=== PATIENT | female | born 1965 | race Caucasian/White ===

== ENCOUNTER 2017-06-24 12:45 | Emergency (ER) | payer BC ==
[~2017-06-24] VITALS: Ht 162.6 cm; Wt 113.6 kg
[~2017-06-24 12:45] MED LIST: CETIRIZINE; LEXAPRO; LOPRESSOR 225 MG/TAB PO; NORCO 325 MG-51 TAB PO; RANEXA1000 MG PO; WELLBUTRIN 100100 MG PO
[2017-06-24 12:48] VITALS: BP 136/63; TEMP 98.3
[2017-06-24] MEDS ORDERED: ISORDIL TITRADO30 MG PO (12:52)
[2017-06-24] MEDS ORDERED: ASPIRIN E.C. 8181 MG PO (12:53)
[2017-06-24] MEDS ORDERED: NORCO 325 MG-51 TAB PO (13:57)
[2017-06-24 14:17] VITALS: PULSE 75
== END 2017-06-24 14:23 | disposition home or self-care (01) ==
LOC: COL.ER 12:45
DX: S22.069A Unspecified fracture of T7-T8 vertebra, initial encounter for closed fracture (principal); F32.9 Major depressive disorder, single episode, unspecified; Z90.89 Acquired absence of other organs; W18.2XXA Fall in (into) shower or empty bathtub, initial encounter

== ENCOUNTER 2023-10-06 08:09 | Observation (INO) | payer BC ==
[2023-10-06] VITALS (7 sets, daily range): BP systolic 123–146; BP diastolic 45–78; PULSE 70–79; TEMP 98.7–99.4
[~2023-10-06] VITALS: Ht 162.6 cm; Wt 113.5 kg
[~2023-10-06 08:09] MED LIST changes: +ASPIRIN E.C. 8181 MG PO; +ISORDIL TITRADO30 MG PO
[2023-10-06] MEDS ORDERED: NS 1,000 ML IV SCH ×2 (08:30→12:45)
[2023-10-06 08:59] LABS: COLLECTION METHOD CLEAN CATCH
[2023-10-06 09:08] LABS: BASO % 0.4 % (0.0-2.0); EOS # 0.2 K/mm3 (0.0-0.7); EOS % 3.5 % (0.0-4.0); GRAN # 3.2 K/mm3 (1.4-6.5); GRAN % 62.1 % (42.2-75.2); HEMATOCRIT 41.3 % (37.0-47.0); HEMOGLOBIN 13.8 g/dl (12.5-16.0); LYMPH # 1.2 K/mm3 (1.2-3.4); MEAN CELL VOLUME 90 fl (80.0-100.0); MEAN CORPUSCULAR HEMOGLOBIN 30 pg (27-31); MEAN CORPUSCULAR HGB CONC 33 g/dl (33.0-37.0); MEAN PLATELET VOLUME 9.4 fl (7.4-10.4); MONO # 0.5 K/mm3 (0.1-0.6); MONO % 10.2 % (1.7-9.3); PLATELET COUNT 154 K/mm3 (130-400); RED BLOOD COUNT 4.57 M/mm3 (4.10-5.30); REDCELL DISTRIBUTION WIDTH-CV 13.5 % (11.5-14.5)
[2023-10-06 09:15] LABS: URINE APPEARANCE CLOUDY (CLEAR/HAZY); URINE BLOOD 3+ (NEGATIVE); URINE COLOR YELLOW (YELLOW); URINE GLUCOSE NEGATIVE (NEGATIVE); URINE KETONE NEGATIVE (NEGATIVE); URINE NITRATE NEGATIVE (NEGATIVE); URINE PROTEIN(semi-quant) 3+ (NEGATIVE); URINE UROBILINOGEN 0.2 E.U/dL (0.2-1.0)
[2023-10-06 09:21] LABS: ALBUMIN 3.7 g/dL (3.5-5.0); BILIRUBIN,TOTAL 0.6 mg/dL (0.2-1.2); CALCIUM 9.3 mg/dL (8.4-10.2); CREATININE, serum 1.08 mg/dL (0.57-1.11); POTASSIUM 3.6 mEq/L (3.5-4.5); TOTAL PROTEIN 6.5 g/dl (6.2-8.1)
[2023-10-06] MEDS ORDERED: Iohexol 300 - 100 ML VIAL IV ONE (10:45)
[2023-10-06] MEDS ORDERED: NS 100 ML IV SCH (10:45)
[2023-10-06] MEDS ORDERED: Morphine 4 MG/ML VIAL IV ONE (11:00)
[2023-10-06] MEDS ORDERED: cefTRIAXone 2 G in Water For Injection,Sterile 20 ML IV ONE (11:15)
[2023-10-06] MEDS ORDERED: ROXICODONE 55 MG/TAB PO (11:53)
[2023-10-06] MEDS ORDERED: CIPRO 500MG TA500 MG PO (11:54)
[2023-10-06] MEDS ORDERED: ZOFRAN ODT4 MG PO (11:55)
[2023-10-06] MEDS ORDERED: oxyCODONE/Acetaminophen 5-325 MG TAB PO PRN (12:30)
[2023-10-06] MEDS ORDERED: Ketorolac 15 MG/ML VIAL IV SCH ×2 (12:30→14:00)
[2023-10-06] MEDS ORDERED: Hyoscyamine 0.125 MG Sublingual TAB SL PRN (12:30)
[2023-10-06] MEDS ORDERED: diphenhydrAMINE 50 MG/ML 1 ML VIAL IV PRN (12:45)
[2023-10-06] MEDS ORDERED: Ondansetron 4 MG/2 ML VIAL IV PRN (12:45)
[2023-10-06] MEDS ORDERED: Morphine PCA 1 MG/ML 30 ML SYRINGE IV SCH (12:45)
[2023-10-06] MEDS ORDERED: diphenhydrAMINE 25 MG CAP PO PRN (12:45)
[2023-10-06] MEDS ORDERED: Naloxone 0.4 MG/ML VIAL IV PRN (12:45)
[2023-10-06] MEDS ORDERED: D5W 1,000 ML IV SCH (12:45)
--- NOTE | 2023-10-06 13:10 | NUR ---
PATIENT BROUGHT TO FLOOR VIA WHEELCHAIR. IV TO LEFT WRIST. PATIENT REPORTS PAIN 3/10. PATIENT INSTUCTED TO STRAIN URINE. INTAKE COMPLETE. ORDERS RECEIVED. PATIENT RESTING IN BED WITH PERSONAL CPAP APPLIED, WANTS TO NAP.
--- NOTE | 2023-10-06 19:45 | NUR ---
PT AMBULATES IN HALLWAY WITH SPOUSE, GAIT STEADY. IVF TO LT WRIST INFUSING WITHOUT PROBLEM. DENIES PAIN, SCHEDULED TORADOL GIVEN. VOIDING WITHOUT PROBLEM.
[2023-10-06] MEDS ORDERED: Sennosides/Docusate 8.6-50 MG TAB PO SCH (21:00)
[2023-10-06] MEDS ORDERED: Ranolazine ER 500 MG TAB PO SCH (21:52)
--- NOTE | 2023-10-06 22:00 | NUR ---
SPOKE WITH DR XIE REGARDING PT HOME MED, NEW ORDER GIVEN. DECREASED IVF TO 60CC/HR. MEDICATED WITH RANEXA 1000MG PO PER HER HOME ROUTINE. PT INDEPENDENT IN ROOM. WILL BE NPO AT MIDNIGHT FOR POSSIBLE SURGERY TOMORROW.
[2023-10-07 00:35] VITALS: BP_SYST 146
[2023-10-07 03:59] VITALS: BP 122/77; PULSE 67; TEMP 98.7
--- NOTE | 2023-10-07 04:00 | NUR ---
PT FEELING BETTER THIS AM. VOIDING CLOUDY MELISSA URINE WITHOUT PROBLEM. DENIES PAIN.
[2023-10-07 04:30] VITALS: BP_SYST 122
[2023-10-07] MEDS ORDERED: LEVAQUIN 5500 MG/TA1 PO (07:14)
[2023-10-07 08:00] VITALS: BP 107/69; PULSE 70; TEMP 98.5
--- NOTE | 2023-10-07 08:45 | NUR ---
pt a&ox4 resting in bed. vss. pt denies pain. meds given and assessment complete. INT to left wrist patent. pt denies needs at this time. diet advanced and if pt tolerates well can discharge. call light in reach.
[2023-10-07 09:29] VITALS: BP_SYST 107
== END 2023-10-07 09:15 | disposition home or self-care (01) ==
LOC: COL.ER 08:09 → SURG 11:13
PROVIDERS: Family Medicine; ADMIT Urology
DX: N13.30 Unspecified hydronephrosis (principal); J06.9 Acute upper respiratory infection, unspecified
CPT/HCPCS: G0378; J0696; J1885; J2270; J2405; J7030; Q9967